=== PATIENT | female | born 1975 | race Caucasian/White ===

== ENCOUNTER 2018-08-29 13:15 | Emergency (ER) | payer BC, MEDICAID ==
--- NOTE | 2018-08-29 14:26 | ER Document Report ---
ED Medical Screen (RME) - General Chief Complaint: Vaginal Discharge Stated Complaint: LEVEL RECHECK Time Seen by Provider: 08/29/18 14:24 Primary Care Provider: BETTY DUKE MD [Primary Care Provider] - Follow up as needed Mode of Arrival: Ambulatory Information source: Patient Notes: 43-year-old female presented to ED for recheck on possible miscarriage. She states she was seen in [place] on Saturday and they told her that the ultrasound was too early to see and that she had a possible threatened miscarriage. She states they told her to follow-up with the emergency room. She came to this hospital instead of [place]. She states she has been bleeding off and on but not constantly. She has states she is not having any pain or cramping. She states her last menstrual period was July 19. She does have 6 children. She states her blood type is a positive. She has a history of asthma and breast augmentation. I have greeted and performed a rapid initial assessment of this patient. A comprehensive ED assessment and evaluation of the patient, analysis of test results and completion of medical decision making process will be conducted by an additional ED providers. - Related Data Allergies/Adverse Reactions: No Known Allergies Allergy (Verified 08/29/18 13:17) Past Medical History Past Surgical History: Reports: Hx Gynecologic Surgery - LEAP, Hx Oral Surgery - Immunizations Hx Diphtheria, Pertussis, Tetanus Vaccination: No Physical Exam - Vital signs Vitals: Temp Pulse Resp BP Pulse Ox 98.3 F 94 16 112/65 100 08/29/18 13:30 08/29/18 13:30 08/29/18 13:30 08/29/18 13:30 08/29/18 13:30 Course - Vital Signs Vital signs: Temp Pulse Resp BP Pulse Ox 98.3 F 94 16 112/65 100 08/29/18 13:30 08/29/18 13:30 08/29/18 13:30 08/29/18 13:30 08/29/18 13:30 Doctor's Discharge - Discharge Referrals: BETTY DUKE MD [Primary Care Provider] - Follow up as needed
[2018-08-29 15:27] LABS: ABSOLUTE BASOPHILS # (AUTO) 0.1 10^3/uL (0.0-0.2); ABSOLUTE EOSINOPHILS # (AUTO) 0.2 10^3/uL (0.0-0.6); ABSOLUTE LYMPHOCYTES (AUTO) 2.5 10^3/uL (0.5-4.7); ABSOLUTE MONOCYTES (AUTO) 0.6 10^3/uL (0.1-1.4); ABSOLUTE NEUT (AUTO) 4.4 10^3/uL (1.7-8.2); BASOPHILS % (AUTO) 0.9 % (0-2); EOSINOPHILS % (AUTO) 2.2 % (0-6); HEMATOCRIT 43.1 % (36.0-47.0); HEMOGLOBIN 14.7 g/dL (12.0-15.5); LYMPHOCYTES % (AUTO) 31.8 % (13-45); MEAN CORPUSCULAR HGB CONC 34.1 g/dL (32.0-36.0); MEAN CORPUSCULAR VOLUME 91 fl (80-97); MONOCYTES % (AUTO) 8.1 % (3-13); PLATELET COUNT 236 10^3/uL (150-450); RED BLOOD COUNT 4.74 10^6/uL (3.72-5.28); RED CELL DISTRIBUTION WIDTH 13.3 % (11.5-14.0); TOTAL CELLS COUNTED % (AUTO) 100 %; WHITE BLOOD COUNT 7.7 10^3/uL (4.0-10.5)
[2018-08-29 15:44] LABS: APPEARANCE,URINE SLIGHTLY-CLOUDY; BILIRUBIN,URINE NEGATIVE (NEGATIVE); COLOR,URINE YELLOW; GLUCOSE, URINE NEGATIVE (NEGATIVE); KETONES,URINE NEGATIVE (NEGATIVE); LEUKOCYTE ESTERASE,URINE NEGATIVE (NEGATIVE); NITRITE,URINE NEGATIVE (NEGATIVE); PROTEIN,URINE NEGATIVE (NEGATIVE); URINE SPECIFIC GRAVITY 1.012; UROBILINOGEN,URINE NEGATIVE mg/dL (<2.0)
--- NOTE | 2018-08-29 18:13 | ER Document Report ---
ED General - General Chief Complaint: Vaginal Discharge Stated Complaint: LEVEL RECHECK Time Seen by Provider: 08/29/18 14:24 Primary Care Provider: BETTY DUKE MD [NO LOCAL MD] - Follow up as needed Mode of Arrival: Ambulatory Notes: 43-year-old female presents to the emergency department with concern for miscarriage. LMP July 19. Had a positive test was seen at [facility] 5 days ago on Saturday where her beta hCG was approximately 900. She had been having some spotting and passed a large clot. She came here because she did not want [place] for follow-up. 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 She denies any pelvic pain, fever, chills, nausea, vomiting. She is Rh+. TRAVEL OUTSIDE OF THE [place] IN LAST 30 DAYS: No - Related Data Allergies/Adverse Reactions: No Known Allergies Allergy (Verified 08/29/18 13:17) Past Medical History - General Information source: Patient - Social History Smoking Status: Never Smoker Chew tobacco use (# tins/day): No Frequency of alcohol use: None Drug Abuse: None Family History: None Patient has suicidal ideation: No Patient has homicidal ideation: No Renal/ Medical History: Denies: Hx Peritoneal Dialysis Past Surgical History: Reports: Hx Gynecologic Surgery - LEAP, Hx Oral Surgery - Immunizations Hx Diphtheria, Pertussis, Tetanus Vaccination: No Review of Systems - Review of Systems Constitutional: See HPI EENT: No symptoms reported Cardiovascular: No symptoms reported Respiratory: No symptoms reported Gastrointestinal: See HPI Genitourinary: No symptoms reported Female Genitourinary: See HPI Musculoskeletal: No symptoms reported Skin: No symptoms reported Hematologic/Lymphatic: No symptoms reported Neurological/Psychological: No symptoms reported Physical Exam - Vital signs Vitals: Temp Pulse Resp BP Pulse Ox 98.3 F 94 16 112/65 100 08/29/18 13:30 08/29/18 13:30 08/29/18 13:30 08/29/18 13:30 08/29/18 13:30 - Notes Notes: PHYSICAL EXAMINATION: Reviewed vital signs and charting by RN GENERAL: Alert, interacts well. No acute distress. HEAD: Normocephalic, atraumatic. EYES: Pupils equal, round. Extraocular movements intact. ENT: Oral mucosa moist. NECK: Full range of motion. Trachea midline. ABDOMEN: soft, non-tender. Non-distended. EXTREMITIES: Moves all 4 extremities spontaneously. No edema, No cyanosis. PSYCH: Normal affect, normal mood. SKIN: Warm, dry, normal turgor. No rashes or lesions noted. Course - Re-evaluation Re-evalutation: 08/29/18 18:15 Patient presents with concern for miscarriage. She was seen in [place] on Saturday where beta hCG level was 900. She was concerned because she was spotting and then passed a large patient adamant that she is Rh+. She declined RhoGam testing. Patient with no acute pelvic pain. Repeat beta-hCG today 105. Explained the patient concerns and told her that the best course of action is to follow-up with [facility] on Saturday morning. She agreed with the plan and is stable for discharge. Strict return precautions were given. - Vital Signs Vital signs: Temp Pulse Resp BP Pulse Ox 98.3 F 94 16 112/65 100 08/29/18 13:30 08/29/18 13:30 08/29/18 13:30 08/29/18 13:30 08/29/18 13:30 - Laboratory Result Diagrams: 08/29/18 14:45 Laboratory results interpreted by me: 08/29/18 08/29/18 14:45 14:45 Serum HCG, Qual POSITIVE H Beta HCG, Quant 105.58 H Discharge - Discharge Clinical Impression: Vaginal bleeding affecting early Condition: Stable Disposition: HOME, SELF-CARE Additional Instructions: You are seen in the emergency department this afternoon for vaginal bleeding and concern for miscarriage. Your beta hCG level was 105. Please attempt to follow-up with [facility] on Saturday and see if they can get you in sooner. If you have heavy bleeding over the weekend, develop severe abdominal pain, become lightheaded or pass out due to heavy bleeding please immediately return to the emergency department. Referrals: BETTY DUKE MD [NO LOCAL MD] - Follow up as needed
[2018-08-29 18:16] VITALS: BP 111/70
== END 2018-08-29 18:22 | disposition home or self-care (01) ==
LOC: ER 13:15
DX: O20.9 Hemorrhage in early pregnancy, unspecified (principal)
CPT/HCPCS: 36415; 81001; 84702; 84703; 85025; 99284